=== PATIENT | male | born 1930 | race Caucasian/White ===

== ENCOUNTER 2017-12-07 19:04 | Inpatient (IN) ==
[2017-12-08] MEDS ORDERED: Bisacodyl 10 MG Supp RECTAL PRN (05:47)
[2017-12-08] MEDS ORDERED: Morphine Inj 4 MG/ML Vial IV.PUSH PRN (05:51)
[2017-12-08] MEDS: Sod Chloride 0.9% Inj 1,000 ML IV.CONT SCH ×3 (08:25→20:06)
--- NOTE | 2017-12-08 12:02 | P.HP ---
History of Present Illness Primary Care Physician: UNKNOWN Chief Complaint: Abdominal pain History of Present Illness: 87-year-old male with known history of hypertension, hyperlipidemia, coronary artery disease, myocardial infarction, hypothyroidism, TIA, obstructive sleep apnea who presented to hospital because of recurrent abdominal pain. Patient indicates that he has had abdominal pain for quite a long time. He has had outpatient workup recently with ultrasound of his abdomen , however he has not followed up with his biomedical doctor for results. Patient states that he does get this discomfort intermittently which he describes as a pain in his upper abdomen. He usually has constipation associated with it and when he starts getting that improved he will have an episode of nausea vomiting and the pain will slowly resolve. However he had the same episode with his abdominal pain, constipation, nausea vomiting without any resolution of the pain so he went to the emergency department for evaluation. 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 There appears to be a focal consolidative masslike opacity in the right medial lower lung measuring 2 cm. Because of those reasons it was recommended by the ER physician the patient be admitted for further evaluation management. Patient is sitting up in bed at this time with mild discomfort. Patient denies any worsening of pain after or before eating. Patient denies any increase flatulence or belching. Patient denies any hematemesis, diarrhea, hematochezia , melena. - Diagnosis (1) Elevated liver enzymes (2) Elevated lipase (3) Choledochocele (4) Lung mass (5) Abdominal pain Review of Systems All other systems reviewed negative except as stated in HPI Gastrointestinal: Reports abdominal pain, Reports constipation, Reports nausea, Reports vomiting PMFSH - History History Provided By: Patient - Medical History Medical History: Medical History (Last Updated 12/08/17 @ 11:28 by LUCRECIA Washington) Obstructive sleep apnea, adult Transient ischemic attack (TIA) Hypercholesteremia Myocardial infarct Presence of cardiac defibrillator Thyroid disease - Surgical History Surgical History: Surgical History (Last Updated 12/08/17 @ 11:27 by LUCRECIA Washington) History of cardiac catheterization History of heart artery stent Hx of bilateral hip replacements Pacemaker S/P TURP - Family History Family History: Family History (Last Updated 12/08/17 @ 11:27 by LUCRECIA Washington) Mother History of diabetes mellitus History of stroke Father History of prostate cancer - Tobacco History Second Hand Smoke Exposure: No Tobacco Use In Past 30 Days: No Smoking Status: Former smoker - Alcohol History How Often Do You Have a Drink Containing Alcohol: Never - Substance Use History Substance History: No History of Abuse - Travel History Recent Travel in the [facility] Within the Last 8 Weeks: No Recent Travel Out of the Country Within the Last 8 Weeks: No Medications and Allergies Active Medications: Active Medications Al Hydroxide/Mg Hydroxide (Milk Of Magnesia Liq) 30 ml PO Q12H PRN PRN Reason: Mild Constipation Bisacodyl (Dulcolax Supp) 10 mg RECTAL DAILY PRN PRN Reason: SEVERE CONSITIPATION Sodium Chloride (Ns Inj) 1,000 mls @ 75 mls/hr IV.CONT .[id number] KELLY Last Admin: 12/08/17 08:25 Dose: 75 mls/hr Lactulose (Lactulose Liq) 30 ml PO DAILY PRN PRN Reason: SEVERE CONSITIPATION Morphine Sulfate (Morphine Inj) 2 mg IV.PUSH Q3H PRN PRN Reason: pain 1 to 10 Senna/Docusate Sodium (Juliana-Colace) 1 tab PO BID [facility] Sennosides (Senokot) 17.2 mg PO Q12H PRN PRN Reason: Moderate Constipation Allergies Allergy/AdvReac Type Severity Reaction Status Date / Time Penicillins Allergy Rash Verified 12/07/17 20:48 Sulfa (Sulfonamide Allergy Anaphylaxis Verified 12/07/17 20:48 Antibiotics) Home Medications Medication Instructions Recorded Confirmed Type apixaban [Eliquis] 5 mg PO BID 12/07/17 12/08/17 History lovastatin 40 mg PO DAILY 12/07/17 12/08/17 History aspirin [Aspir-81] 81 mg PO DAILY 12/08/17 12/08/17 History donepezil 10 mg PO DAILY 12/08/17 12/08/17 History finasteride 5 mg PO DAILY 12/08/17 12/08/17 History folic acid 1 mg PO DAILY 12/08/17 12/08/17 History isosorbide dinitrate 5 mg PO BID 12/08/17 12/08/17 History levothyroxine 75 mcg PO DAILY 12/08/17 12/08/17 History metoprolol tartrate 25 mg PO BID 12/08/17 12/08/17 History nitroglycerin [Nitrostat] 0.4 mg SUBLINGUAL Q5-15M PRN 12/08/17 12/08/17 History Exam Vital signs: Vital Signs 12/08/17 05:45 12/08/17 08:25 Temperature 96.9 F L 97.4 F L Pulse Rate 54 L 52 L Respiratory Rate 20 18 Blood Pressure 164/72 H 145/56 H Pulse Oximetry 98 97 Intake & Output 12/07/17 12/08/17 12/08/17 18:59 06:59 18:59 Weight 78.8 kg Other: Weight On Admission 78.9 kg Narrative: GENERAL: Well-developed, well-nourished, in no acute distress. alert and orientated HEENT: Head is normocephalic without any lesions or masses noted. Facial features are symmetric. Eyes: Pupils equal round reactive to light. Extraocular muscles are intact. Conjunctivae were clear. Oropharyngeal: Pharynx without any erythema edema. Tongue is midline without deviation. Buccal mucosa is moist without any masses or lesions NECK: Supple without any masses. Trachea midline no deviation. No JVD, no bruits are appreciated CARDIAC: Regular rhythm, regular rate. S1/S2 are heard. No murmurs gallops or rubs. LUNGS: Clear to auscultation bilaterally. No wheeze, rhonchi or rales. No use of accessory muscles on inspiration or expiration. ABDOMEN: Soft, mild tenderness on deep palpation of the upper right quadrant. Mild positive Rodriguez sign. Nondistended. Bowel sounds heard in all 4 quadrants. No organomegaly or masses. Negative rebound, negative guarding EXTREMITIES: No edema, pulses are equal bilaterally. No cyanosis or clubbing NEUROLOGY: Mood and affect appear appropriate. Cranial nerves II through XII grossly intact. Muscle strength 5/5 in upper and lower extremities bilaterally. Deep tendon reflexes are 2+ in upper and lower extremities bilaterally. Caprini VTE Risk Assessment Caprini VTE Risk Assessment: Moderate/High Risk (score >= 2) Caprini Risk Assessment Model: Point Value = 1 Point Value = 2 Point Value = 3 Point Value = 5 Age 41-60 Minor surgery BMI > 25 kg/m2 Swollen legs Varicose veins or History of unexplained or recurrent spontaneous Oral contraceptives or hormone replacement Sepsis (< 1 month) Serious lung disease, including pneumonia (< 1 month) Abnormal pulmonary function Acute myocardial infarction Congestive heart failure (< 1 month) History of inflammatory bowel disease Medical patient at bed rest Age 61-74 Arthroscopic surgery Major open surgery (> 45 min) Laparoscopic surgery (> 45 min) Malignancy Confined to bed (> 72 hours) Immobilizing plaster cast Central venous access Age >= 75 History of VTE Family history of VTE Factor V Leiden Prothrombin [id number] Lupus anticoagulant Anticardiolipin antibodies Elevated serum homocysteine Heparin-induced thrombocytopenia Other congenital or acquired thrombophilia Stroke (< 1 month) Elective arthroplasty Hip, pelvis, or leg fracture Acute spinal cord injury (< 1 month) Prophylaxis Regimen: Total Risk Factor Score Risk Level Prophylaxis Regimen 0-1 Low Early ambulation 2 Moderate Order ONE of the following: *Sequential Compression Device (SCD) *Heparin 5000 units SQ BID 3-4 Higher Order ONE of the following medications: *Heparin 5000 units SQ TID *Enoxaparin/Lovenox 40 mg SQ daily (WT < 150 kg, CrCl > 30 mL/min) *Enoxaparin/Lovenox 30 mg SQ daily (WT < 150 kg, CrCl > 10-29 mL/min) *Enoxaparin/Lovenox 30 mg SQ BID (WT < 150 kg, CrCl > 30 mL/min) AND/OR *Sequential Compression Device (SCD) 5 or more Highest Order ONE of the following medications: *Heparin 5000 units SQ TID (Preferred with Epidurals) *Enoxaparin/Lovenox 40 mg SQ daily (WT < 150 kg, CrCl > 30 mL/min) *Enoxaparin/Lovenox 30 mg SQ daily (WT < 150 kg, CrCl > 10-29 mL/min) *Enoxaparin/Lovenox 30 mg SQ BID (WT < 150 kg, CrCl > 30 mL/min) AND *Sequential Compression Device (SCD) Assessment and Plan - Assessment (1) Elevated liver enzymes Code(s): R74.8 - Abnormal levels of other serum enzymes Status: Acute (2) Elevated lipase Code(s): R74.8 - Abnormal levels of other serum enzymes Status: Acute (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 - Other congenital malformations of bile ducts Status: Acute (4) Lung mass Code(s): R91.8 - Other nonspecific abnormal finding of lung field Status: Acute (5) Abdominal pain Code(s): R10.9 - Unspecified abdominal pain Status: Acute - Plan Choledochocele/choledocholithiasis -Patient presented with abdominal pain, Elevated liver enzymes, elevated pancreatic enzymes, -CT finding indicating dilated intra-and extrahepatic biliary urinary, possible choledochocele -GI consulted for further recommendations -Unable to do MRCP secondary to patient having a pacemaker -Consider HIDA scan for further evaluation -Continue n.p.o., IV fluids, pain control -Laboratory findings indicative of obstructive process. Continue to monitor liver enzymes, lipase level Masslike consolidation in the right lower lung -Patient does have history of recurrent nausea and vomiting, possible aspiration -Patient is asymptomatic for any infectious process. Patient is afebrile, no leukocytosis, no symptoms of cough, congestion, phlegm production -Consult Pulmonology for further eval Hypertension, hyperlipidemia, coronary disease, history of TIA -We will evaluate patient's home medication list and continue medications as appropriate once diet resumed -Unable to resume beta-renard due to bradycardia -We will continue to hold Eliquis due to possible procedure Hypothyroidism -Continue home medication once diet resumed DVT prevention -Sequential compression devices
[2017-12-08] MEDS: Senna/Docusate Sodium 8.6/50 MG Tablet PO SCH ×2 (12:45→20:06)
[2017-12-08 13:24] LABS: Baso % (Auto) 0.6 % (0.0-2.0); Eos # (Auto) 0.1 th/mm3 (0.0-0.4); Eos % (Auto) 1.8 % (0.0-4.0); Hematocrit 39.1 % (39.0-51.0); Hemoglobin 13.4 gm/dL (13.0-17.0); Lymph # (Auto) 1.4 th/mm3 (1.0-4.8); Lymph % (Auto) 24.1 % (9.0-44.0); Mean Corpuscular HGB Conc 34.3 % (32.0-36.0); Mean Corpuscular Hemoglobin 35.7 pg (27.0-34.0); Mean Platelet Volume 9.2 fL (7.0-11.0); Mono # (Auto) 0.6 th/mm3 (0.0-0.9); Neut # (Auto) 3.7 th/mm3 (1.8-7.7); Neut % (Auto) 63.5 % (16.0-70.0); Platelet Count 149 th/mm3 (150-450); Red Blood Count 3.76 mil/mm3 (4.50-5.90); Red Cell Distribution Width 13.2 % (11.6-17.2); White Blood Count 5.8 th/mm3 (4.0-11.0)
[2017-12-08 14:02] LABS: Chloride 103 meq/L (98-107); Potassium 3.6 meq/L (3.5-5.1); Sodium 141 meq/L (136-145)
[2017-12-08 14:06] LABS: Anion Gap 8 meq/L (5-15); Calcium 8.6 mg/dL (8.5-10.1); Carbon Dioxide 30.4 meq/L (21.0-32.0); Glucose,Random 71 mg/dL (74-106)
[2017-12-08 14:07] LABS: Blood Urea Nitrogen 15 mg/dL (7-18)
[2017-12-08 14:09] LABS: Alanine Aminotransferase 97 U/L (12-78); Aspartate Aminotransferase 113 U/L (15-37); Glomerular Filtration Rate 79 mL/min (>89)
[2017-12-08 14:11] LABS: Total Protein 6.7 g/dL (6.4-8.2)
[2017-12-08 14:12] LABS: Alkaline Phosphatase 234 U/L (45-117); Lipase 5615 U/L (73-393)
[2017-12-08] MEDS ORDERED: Metoprolol Tartrate 25 MG Tablet PO ONE (15:17)
[2017-12-08] MEDS ORDERED: Chlorhexidine Gluconate 2% 1 Pack (2 Cloths) TOPICAL ONE (15:17)
[2017-12-08] MEDS ORDERED: Sodium Chlor 0.9% Inj 500 ML IV.SIG SCH (16:00)
[2017-12-08] MEDS ORDERED: Succinylcholine Inj 100 MG/5 ML Syringe IV.PUSH ONE (16:07)
[2017-12-08] MEDS ORDERED: Metoprolol Inj 5 MG/5 ML Vial IV.PUSH ONE (16:07)
[2017-12-08] MEDS ORDERED: Lidocaine PF 1% Inj 5 ML Syringe OTHER ONE (16:07)
[2017-12-08] MEDS ORDERED: Glycopyrrolate Inj 1 MG/5 ML Syringe IV.PUSH ONE (16:07)
[2017-12-08] MEDS ORDERED: hydrALAZINE HCl Inj 20 MG/ML Vial IV.PUSH ONE (16:07)
--- NOTE | 2017-12-08 17:18 | FL ---
EXAM DATE: 12/08/2017 12:00 AM EDT AGE/SEX: 87 years / Male INDICATIONS: Evaluate for CBD obstruction and stent placement. CLINICAL DATA: This is the patient's subsequent encounter. Patient reports that signs and symptoms h ave been present for 4 - 6 days and indicates a pain score of Nonresponsive. MEDICAL/SURGICAL HISTORY: None. None. COMPARISON: No prior exams available for comparison. FINDINGS: An ERCP was performed by the ordering physician. The images demonstrate contrast in the common bile duct. On the final film there is an internal biliary stent in place. CONCLUSION: Status post placement of an internal biliary stent which appears to be in good position. Electronically signed by: Cliff Tripathi MD 12/08/2017 5:17 PM EDT
--- NOTE | 2017-12-08 18:39 | MB ---
cc: Vikki Iqbal MD, Jennifer L MD Zulfiqar, Hassan MD DATE: 12/08/2017 REASON FOR CONSULTATION: Biliary pancreatitis. HISTORY OF PRESENT ILLNESS: Mr. Hernandez is an 87-year-old gentleman basically presented with severe central abdominal pain with jaundice. He says he has episodic abdominal pain and nausea and vomiting over a period of years, but more recently, this has gotten worse and this time, his pain symptoms did not resolve, so he is coming to the hospital to be evaluated. He had a CT scan done on admission, which showed dilated intrahepatic and extrahepatic biliary system possible choledochocele. Also, possible right lung mass. GI service has been consulted for possible ERCP. REVIEW OF SYSTEMS: The patient is complaining of epigastric pain. He is icteric. Some nausea, but no vomiting. No bleeding. PAST MEDICAL HISTORY: Obstructive sleep apnea, TIA, hypercholesterolemia, OR in the past, thyroid disease. The patient has a cardiac defibrillator. PAST SURGICAL HISTORY: Cardiac catheterization, stent placement, pacemaker, TURP. FAMILY HISTORY: Noncontributory. SOCIAL HISTORY: No alcohol, no tobacco reported. MEDICATIONS: 1. Lactulose. 2. Morphine. 3. Senokot. PHYSICAL EXAMINATION: GENERAL: Reveals a well-nourished man in no apparent distress. VITAL SIGNS: Stable. HEAD AND NECK: Icteric sclerae. CHEST: Bilateral air entry with rales. ABDOMEN: Soft, tenderness in the epigastric area. No guarding, no rigidity. CENTRAL NERVOUS SYSTEM: Nonfocal. LABORATORY DATA: White cell count of 5.8, total bilirubin 5.8, AST 113, ALT 97, alkaline phosphatase 234. Lipase on presentation was over 30,000, now at 5615. CT of the abdomen and pelvis done yesterday shows dilation of the intrahepatic and extrahepatic biliary system, possible choledochocele, sigmoid diverticulosis and a possible consolidation in the right lung. IMPRESSION: Biliary pancreatitis. RECOMMENDATIONS: ERCP is planned for today. Risks and limitations have been discussed with him and his family. The patient will be transferred to [facility] for the ERCP. Further recommendations to follow based on the above. Vikki Iqbal MD HZ/ct , 06:04 PM , 06:14 PM
--- NOTE | 2017-12-08 19:19 | MB ---
cc: Raven Carbajal MD DATE: 12/08/2017 REASON FOR CONSULTATION: Right lower lung density, significance unclear. HISTORY OF PRESENT ILLNESS: The patient is an 87-year-old male who was admitted for biliary obstruction. A biliary stent has been placed. The patient has known history of hypertension, hyperlipidemia, coronary artery disease, hypothyroidism and obstructive sleep apnea. The patient had a CT scan of the abdomen revealing biliary obstruction and noted was a right lower lobe lung density, which had air bronchograms, significance was not clear. I am asked to see the patient at this time for same. He denies shortness of breath, fever, chills, cough or expectoration or hemoptysis. Used to smoke; however, has not smoked for over 30 years. PAST MEDICAL HISTORY: 1. Hypertension. 2. Hyperlipidemia. 3. Coronary artery disease. 4. Hypothyroidism. 5. Previous TIA. 6. Obstructive sleep apnea, on PAP therapy. PAST SURGICAL HISTORY: Include cardiac catheterization and stent placement, bilateral hip placement, pacemaker insertion, TURP in the past. FAMILY HISTORY: Positive for diabetes and stroke as well as prostate cancer. SOCIAL HISTORY: He used to smoke; however, has not smoked in 30 years. Never drank any alcohol, does not use drugs. MEDICATIONS: Include: 1. Senna. 2. Morphine. 3. Lactulose. 4. Sodium chloride. ALLERGIES: SULFA AND PENICILLIN. REVIEW OF SYSTEMS: A 12-point review of systems as per HPI and past history, otherwise negative. PHYSICAL EXAMINATION: GENERAL: The patient is alert. VITAL SIGNS: Temperature is 97, pulse 54, respirations 18, blood pressure 140/60, oxygen saturation 97% on room air. HEENT: Unremarkable. Eyes without icterus. NECK: Without adenopathy or thyroid enlargement. CHEST: No dullness to percussion. Clear to auscultation. ABDOMEN: Slight right upper quadrant tenderness noted. Bowel sounds audible. EXTREMITIES: No clubbing, cyanosis or edema. SKIN: Normal. No lymphadenopathy. LABORATORY DATA: White count 5.8, hemoglobin 13, hematocrit 39, platelets 149,000. Sodium 141, potassium 3.6, BUN 15, creatinine 0.9. IMPRESSION: 1. Right lung density, significance unclear. 2. Hypertension. 3. Hyperlipidemia. 4. Coronary artery disease. 5. Chronic obstructive sleep apnea. 6. Hypothyroidism. 7. History of transient ischemic attack. PLAN: The patient has no respiratory symptomatology. At present is without shortness of breath. The density in the right lower lung has air bronchograms which speaks more for atelectatic change or pneumonia rather than malignancy; however, it needs to be followed up. Once his GI evaluation is complete and the biliary obstruction resolved, will obtain a followup CT scan in a few weeks. Meanwhile, when able we will obtain baseline pulmonary function. I do thank you for asking me to partake in Mr. Hernandez's care. Sincerely, Raven Carbajal MD WWW/ct , 06:28 PM , 06:38 PM
[2017-12-09] MEDS: Sod Chloride 0.9% Inj 1,000 ML IV.CONT SCH ×2 (05:29→10:23)
[2017-12-09 07:13] LABS: Baso % (Auto) 0.1 % (0.0-2.0); Hematocrit 41.8 % (39.0-51.0); Hemoglobin 14.3 gm/dL (13.0-17.0); Lymph # (Auto) 0.8 th/mm3 (1.0-4.8); Lymph % (Auto) 13.1 % (9.0-44.0); Mean Corpuscular HGB Conc 34.3 % (32.0-36.0); Mean Corpuscular Hemoglobin 35.9 pg (27.0-34.0); Mean Corpuscular Volume 104.8 fL (80.0-100.0); Mean Platelet Volume 10.5 fL (7.0-11.0); Mono # (Auto) 0.2 th/mm3 (0.0-0.9); Mono % (Auto) 2.9 % (0.0-8.0); Neut # (Auto) 5.1 th/mm3 (1.8-7.7); Neut % (Auto) 83.9 % (16.0-70.0); Platelet Count 144 th/mm3 (150-450); Red Blood Count 3.99 mil/mm3 (4.50-5.90); Red Cell Distribution Width 13.8 % (11.6-17.2); White Blood Count 6.1 th/mm3 (4.0-11.0)
[2017-12-09 08:04] LABS: Anion Gap 12 meq/L (5-15); Blood Urea Nitrogen 20 mg/dL (7-18); Calcium 8.4 mg/dL (8.5-10.1); Carbon Dioxide 22.8 meq/L (21.0-32.0); Chloride 102 meq/L (98-107); Glomerular Filtration Rate 89 mL/min (>89); Glucose,Random 93 mg/dL (74-106); Lipase 361 U/L (73-393); Potassium 3.7 meq/L (3.5-5.1); Sodium 137 meq/L (136-145)
[2017-12-09 08:05] LABS: Alanine Aminotransferase 86 U/L (12-78); Aspartate Aminotransferase 85 U/L (15-37)
[2017-12-09 08:07] LABS: Alkaline Phosphatase 228 U/L (45-117)
[2017-12-09 09:15] VITALS: RESP 16
[2017-12-09] MEDS: Senna/Docusate Sodium 8.6/50 MG Tablet PO SCH (10:23)
--- NOTE | 2017-12-09 11:09 | ECG ---
Date Performed: 12/08/2017 Time Performed: 15:29:24 PTAGE: 87 years EKG: SINUS BRADYCARDIA BORDERLINE LEFT AXIS DEVIATION INCOMPLETE RIGHT BUNDLE BRANCH BLOCK NONSP ECIFIC ST & T-WAVE ABNORMALITY BORDERLINE ECG NO PREVIOUS TRACING DOCTOR: Jonah Rose Interpretating Date/Time 12/09/2017 11:08:19
--- NOTE | 2017-12-09 11:25 | P.PNGI ---
Subjective Interval history: Patient laying supine in bed, spouse at bedside. Patient post ERCP yesterday. Reporting mild lower abdominal discomfort that he states is less than upon admission. Denies nausea or vomiting, is n.p.o. at this time. <DavidTami - Last Filed: 12/09/17 11:15> Physical Exam Vital signs: Vital Signs 12/08/17 17:06 12/08/17 17:15 12/08/17 17:47 Temperature 97.8 F 97.8 F 98.0 F Pulse Rate 73 72 62 Respiratory Rate 20 15 18 Blood Pressure 147/64 H 137/68 154/68 H Pulse Oximetry 100 99 97 12/08/17 20:02 12/09/17 00:35 12/09/17 04:00 Temperature 97.7 F 97.4 F L 97.3 F L Pulse Rate 60 70 77 Respiratory Rate 20 20 17 Blood Pressure 119/57 L 143/61 H 143/68 H Pulse Oximetry 97 97 96 12/09/17 08:00 Temperature 97.4 F L Pulse Rate 62 Respiratory Rate 16 Blood Pressure 128/70 Pulse Oximetry 97 Intake & Output 12/08/17 12/09/17 12/09/17 18:59 06:59 18:59 Intake Total 1700 / 1700 1000 / 1000 1200 / 1200 Output Total 400 / 400 Balance 1700 / 1700 1000 / 1000 800 / 800 Weight 83.2 kg Intake: IV 1000 / 1000 1000 / 1000 300 / 300 NS Inj 1,000 ML @ 75 mls/hr IV. 1000 / 1000 1000 / 1000 CONT .[id number] KELLY Rx#: [id number] LR 1000 mL Inj 1,000 ML @ 30 300 / 300 mls/hr IV.SIG .Q24H KELLY Rx#: [id number] Oral 900 / 900 Anesthesia Amount 700 / 700 Output: Urine 400 / 400 Other: # Voids 1 1 Date of Last Bowel Movement 12/07/17 12/07/17 - Constitutional no acute distress - Routine HEENT Exam Head: Present: normocephalic - Routine Respiratory Exam Present: CTA bilaterally. Absent: accessory muscle use - Routine Cardiovascular Exam Present: RRR - Routine Abdominal Exam Present: soft, normoactive bowel sounds. Absent: tenderness, distended, guarding, firm - Routine Extremities Exam Present: pulses intact. Absent: edema - Routine Skin Exam Present: dry, warm - Routine Neurological Exam Present: alert, oriented X3 - Detailed Neurological Exam: Coma Scale Eye Opening: Spontaneous Verbal Response: Oriented Motor Response: Obey commands Suad Coma Scale Total: 15 - Routine Psychiatric Exam Present: normal affect, cooperative <Tami David - Last Filed: 12/09/17 11:15> Vital signs: Vital Signs 12/08/17 17:06 12/08/17 17:15 12/08/17 17:47 Temperature 97.8 F 97.8 F 98.0 F Pulse Rate 73 72 62 Respiratory Rate 20 15 18 Blood Pressure 147/64 H 137/68 154/68 H Pulse Oximetry 100 99 97 12/08/17 20:02 12/09/17 00:35 12/09/17 04:00 Temperature 97.7 F 97.4 F L 97.3 F L Pulse Rate 60 70 77 Respiratory Rate 20 20 17 Blood Pressure 119/57 L 143/61 H 143/68 H Pulse Oximetry 97 97 96 12/09/17 08:00 12/09/17 12:48 Temperature 97.4 F L 97.5 F L Pulse Rate 62 61 Respiratory Rate 16 16 Blood Pressure 128/70 119/63 Pulse Oximetry 97 95 Intake & Output 12/08/17 12/09/17 12/09/17 18:59 06:59 18:59 Intake Total 1700 / 1700 1000 / 1000 1200 / 1200 Output Total 400 / 400 Balance 1700 / 1700 1000 / 1000 800 / 800 Weight 83.2 kg Intake: IV 1000 / 1000 1000 / 1000 300 / 300 NS Inj 1,000 ML @ 75 mls/hr IV. 1000 / 1000 1000 / 1000 CONT .[id number] KELLY Rx#: [id number] LR 1000 mL Inj 1,000 ML @ 30 300 / 300 mls/hr IV.SIG .Q24H KELLY Rx#: [id number] Oral 900 / 900 Anesthesia Amount 700 / 700 Output: Urine 400 / 400 Other: # Voids 1 1 Date of Last Bowel Movement 12/07/17 12/07/17 <Vikki Iqbal - Last Filed: 12/09/17 14:03> Results - Labs CBC & Chem 7: 12/09/17 05:52 12/09/17 05:52 Laboratory Results - last 24 hr 12/08/17 12/08/1712/09/18 13:00 13:00 05:52 CBC w Diff Auto diff final WBC 5.8 6.1 RBC 3.76 L 3.99 L Hgb 13.4 14.3 Hct 39.1 41.8 MCV 104.0 H D 104.8 H MCH 35.7 H 35.9 H MCHC 34.3 34.3 RDW 13.2 13.8 Plt Count 149 L 144 L MPV 9.2 10.5 Neut % (Auto) 63.5 83.9 H Lymph % (Auto) 24.1 13.1 [place] % (Auto) 10.0 H 2.9 Eos % (Auto) 1.8 0.0 Baso % (Auto) 0.6 0.1 Neut # (Auto) 3.7 5.1 Lymph # (Auto) 1.4 0.8 L [place] # (Auto) 0.6 0.2 Eos # (Auto) 0.1 0.0 Baso # (Auto) 0.0 0.0 WBC Differential . . Differential Comment . Auto diff final Sodium 141 Potassium 3.6 Chloride 103 Carbon Dioxide 30.4 Anion Gap 8 BUN 15 Creatinine 0.91 Estimated GFR 79 L Random Glucose 71 L Calcium 8.6 Total Bilirubin 5.8 H AST 113 H ALT 97 H Alkaline Phosphatase 234 H Total Protein 6.7 D Albumin 3.0 L D Lipase 5615 H 12/09/17 05:52 CBC w Diff WBC RBC Hgb Hct MCV MCH MCHC RDW Plt Count MPV Neut % (Auto) Lymph % (Auto) [place] % (Auto) Eos % (Auto) Baso % (Auto) Neut # (Auto) Lymph # (Auto) [place] # (Auto) Eos # (Auto) Baso # (Auto) WBC Differential Differential Comment Sodium 137 Potassium 3.7 Chloride 102 Carbon Dioxide 22.8 Anion Gap 12 BUN 20 H Creatinine 0.82 Estimated GFR 89 Random Glucose 93 Calcium 8.4 L Total Bilirubin 2.2 H AST 85 H ALT 86 H Alkaline Phosphatase 228 H Total Protein 7.0 Albumin 3.0 L Lipase 361 - Imaging Impressions GI Procedure 12/08/17 00:00 CONCLUSION: Status post placement of an internal biliary stent which appears to be in good position. <Tami David - Last Filed: 12/09/17 11:15> - Labs CBC & Chem 7: 12/09/17 05:52 12/09/17 05:52 Laboratory Results - last 24 hr 12/08/17 12/09/17 12/09/17 13:00 05:52 05:52 WBC 6.1 RBC 3.99 L Hgb 14.3 Hct 41.8 MCV 104.8 H MCH 35.9 H MCHC 34.3 RDW 13.8 Plt Count 144 L MPV 10.5 Neut % (Auto) 83.9 H Lymph % (Auto) 13.1 [place] % (Auto) 2.9 Eos % (Auto) 0.0 Baso % (Auto) 0.1 Neut # (Auto) 5.1 Lymph # (Auto) 0.8 L [place] # (Auto) 0.2 Eos # (Auto) 0.0 Baso # (Auto) 0.0 WBC Differential . Differential Comment Auto diff final Sodium 141 137 Potassium 3.6 3.7 Chloride 103 102 Carbon Dioxide 30.4 22.8 Anion Gap 8 12 BUN 15 20 H Creatinine 0.91 0.82 Estimated GFR 79 L 89 Random Glucose 71 L 93 Calcium 8.6 8.4 L Total Bilirubin 5.8 H 2.2 H AST 113 H 85 H ALT 97 H 86 H Alkaline Phosphatase 234 H 228 H Total Protein 6.7 D 7.0 Albumin 3.0 L D 3.0 L Lipase 5615 H 361 - Imaging Impressions GI Procedure 12/08/17 00:00 CONCLUSION: Status post placement of an internal biliary stent which appears to be in good position. <Vikki Iqbal - Last Filed: 12/09/17 14:03> Assessment and Plan - Plan Biliary Pancreatitis-patient post ERCP yesterday resting comfortably. Reports lower abdominal mild discomfort which he states is improved from admission. ERCP revealed dilation of the common bile duct up to 9 mm with no bile draining of the ampulla. Ampulla dilated with biliary dilation balloon and stent placed in the common biliary duct. Hemoglobin 14.3 hematocrit 41.8 total bilirubin 2.2 AST 85 ALT 86 alk phos 228 lipase much improved 361 from 5615 on 12/08/2017. Plan -N.p.o. for now -MRCP -Continue to monitor liver enzymes -Bowel regimen -Analgesics per attending -Supportive care -Further recommendations to follow based on patient's status and findings This patient has been seen by myself and Dr. Iqbal and this note is written on his behalf - Attending Attestation Dr. Iqbal <Tami David - Last Filed: 12/09/17 11:15> - Plan Seen and examined with [employer] MK 2 ADVANCED OPERATOR, MRCP today. S/p ercp/stent yesterday. Monitor labs. Unclear etiology of pancreatitis. Biopsies-p. The exam, history, and the medical decision-making described in the above note were completed with the assistance of the mid-level provider. I reviewed and agree with the findings presented. I attest that I had a [id number] encounter with the patient on the same day, and personally performed and documented my assessment and findings in the medical record. <Vikki Iqbal - Last Filed: 12/09/17 14:03>
--- NOTE | 2017-12-09 11:38 | P.PN ---
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 There appears to be a focal consolidative masslike opacity in the right medial lower lung measuring 2 cm. 12/09: Seen in his bedroom in the presence of his relatives, he had the MRCP giving Interval placement of a Silastic stent within the common bile duct, no biliary ductal dilatation observed on the current study, Prior Cholecystectomy, Examination is slightly lmited due to breathing motion artifact. okay to discharge from GI specialist standpoint and follow as outpatient, also by field marketing specialist will follow as outpatient. By Doctor Raven Carbajal. Physical Exam Vital signs: Vital Signs 12/08/17 17:06 12/08/17 17:15 12/08/17 17:47 Temperature 97.8 F 97.8 F 98.0 F Pulse Rate 73 72 62 Respiratory Rate 20 15 18 Blood Pressure 147/64 H 137/68 154/68 H Pulse Oximetry 100 99 97 12/08/17 20:02 12/09/17 00:35 12/09/17 04:00 Temperature 97.7 F 97.4 F L 97.3 F L Pulse Rate 60 70 77 Respiratory Rate 20 20 17 Blood Pressure 119/57 L 143/61 H 143/68 H Pulse Oximetry 97 97 96 12/09/17 08:00 Temperature 97.4 F L Pulse Rate 62 Respiratory Rate 16 Blood Pressure 128/70 Pulse Oximetry 97 Intake & Output 12/08/17 12/09/17 12/09/17 18:59 06:59 18:59 Intake Total 1700 / 1700 1000 / 1000 1200 / 1200 Output Total 400 / 400 Balance 1700 / 1700 1000 / 1000 800 / 800 Weight 83.2 kg Intake: IV 1000 / 1000 1000 / 1000 300 / 300 NS Inj 1,000 ML @ 75 mls/hr IV. 1000 / 1000 1000 / 1000 CONT .[id number] KELLY Rx#: [id number] LR 1000 mL Inj 1,000 ML @ 30 300 / 300 mls/hr IV.SIG .Q24H KELLY Rx#: [id number] Oral 900 / 900 Anesthesia Amount 700 / 700 Output: Urine 400 / 400 Other: # Voids 1 1 Date of Last Bowel Movement 12/07/17 12/07/17 Narrative: GENERAL: Well-developed, well-nourished, in no acute distress. alert and orientated HEENT: Head is normocephalic without any lesions or masses noted. NECK: Supple without any masses. Trachea midline no deviation. No JVD, no bruits are appreciated CARDIAC: Regular rhythm, regular rate. S1/S2 are heard. No murmurs gallops or rubs. LUNGS: Clear to auscultation bilaterally. No wheeze, rhonchi or rales. No use of accessory muscles on inspiration or expiration. ABDOMEN: Soft, Not tender. EXTREMITIES: No edema, pulses are equal bilaterally. No cyanosis or clubbing NEUROLOGY: Mood and affect appear appropriate. Cranial nerves II through XII grossly intact. Muscle strength 5/5 in upper and lower extremities bilaterally. Deep tendon reflexes are 2+ in upper and lower extremities bilaterally. Results - Labs CBC & Chem 7: 12/09/17 05:52 12/09/17 05:52 Laboratory Results - last 24 hr 12/08/17 12/08/17 12/09/17 13:00 13:00 05:52 CBC w Diff Auto diff final WBC 5.8 6.1 RBC 3.76 L 3.99 L Hgb 13.4 14.3 Hct 39.1 41.8 MCV 104.0 H D 104.8 H MCH 35.7 H 35.9 H MCHC 34.3 34.3 RDW 13.2 13.8 Plt Count 149 L 144 L MPV 9.2 10.5 Neut % (Auto) 63.5 83.9 H Lymph % (Auto) 24.1 13.1 [place] % (Auto) 10.0 H 2.9 Eos % (Auto) 1.8 0.0 Baso % (Auto) 0.6 0.1 Neut # (Auto) 3.7 5.1 Lymph # (Auto) 1.4 0.8 L [place] # (Auto) 0.6 0.2 Eos # (Auto) 0.1 0.0 Baso # (Auto) 0.0 0.0 WBC Differential . . Differential Comment . Auto diff final Sodium 141 Potassium 3.6 Chloride 103 Carbon Dioxide 30.4 Anion Gap 8 BUN 15 Creatinine 0.91 Estimated GFR 79 L Random Glucose 71 L Calcium 8.6 Total Bilirubin 5.8 H AST 113 H ALT 97 H Alkaline Phosphatase 234 H Total Protein 6.7 D Albumin 3.0 L D Lipase 5615 H 12/09/17 05:52 CBC w Diff WBC RBC Hgb Hct MCV MCH MCHC RDW Plt Count MPV Neut % (Auto) Lymph % (Auto) [place] % (Auto) Eos % (Auto) Baso % (Auto) Neut # (Auto) Lymph # (Auto) [place] # (Auto) Eos # (Auto) Baso # (Auto) WBC Differential Differential Comment Sodium 137 Potassium 3.7 Chloride 102 Carbon Dioxide 22.8 Anion Gap 12 BUN 20 H Creatinine 0.82 Estimated GFR 89 Random Glucose 93 Calcium 8.4 L Total Bilirubin 2.2 H AST 85 H ALT 86 H Alkaline Phosphatase 228 H Total Protein 7.0 Albumin 3.0 L Lipase 361 - Imaging GI Procedure 12/08/17 00:00 CONCLUSION: Status post placement of an internal biliary stent which appears to be in good position. 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 Ampulla dilated with biliary dilation balloon and stent placed in the common biliary duct. His Bilirubin 2.2, AST 85 ALT 86, AP 228, Lipase improved 361 from 565 on 12/08/17. recommended to continue NPO. MRCP1: Seen in his bedroom in the presence of his relatives, he had the MRCP giving Interval placement of a Silastic stent within the common bile duct, no biliary ductal dilatation observed on the current study, Prior Cholecystectomy, Examination is slightly lmited due to breathing motion artifact. okay to discharge from GI specialist standpoint and follow as outpatient Masslike consolidation in the right lower lung, -Patient does have history of recurrent nausea and vomiting, possible aspiration -Patient is asymptomatic for any infectious process. Patient is afebrile, no leukocytosis, no symptoms of cough, congestion, phlegm production -also by field marketing specialist will follow as outpatient. By Doctor Raven Carbajal. Hypertension, hyperlipidemia, coronary disease, history of TIA -We will evaluate patient's home medication list and continue medications as appropriate once diet resumed -Unable to resume beta-renard due to bradycardia -re started the rest of home medicines. Hypothyroidism -Continue home medication once diet resumed DVT prevention -Sequential compression devices Code Status: Full Code. Discussed Condition With: as per Utilization management asked me early in am to switch the patient to Inpatient but he is going to be discharged now. was switched early in am discussed with patient and nurse and relatives in the room Discharge Planning: Discharge Home now.
[2017-12-09] MEDS ORDERED: Gadobutrol PF 10 MMOL/10 ML Vial (for RAD) IV.SIG ONE (14:28)
--- NOTE | 2017-12-09 14:50 | MR ---
EXAM DATE: 12/09/2017 10:56 AM EDT AGE/SEX: 87 years / Male INDICATIONS: Abdominal pain. CLINICAL DATA: This is the patient's subsequent encounter. Patient reports that signs and symptoms h ave been present for 2 days and indicates a pain score of 3/10. MEDICAL/SURGICAL HISTORY: Carcinoma, prostatic. Hypertension. Hypothyroidism. TIA Cholecyst ectomy. bilateral hip replacement, [employer] pacemaker, cardiac stents COMPARISON: [facility], CT ABDOMEN & PELVIS W CONTRAST, 12/07/2017.. . TECHNIQUE: Multisequence, multiplanar MRI examination was performed without contrast and after the in travenous administration of 8 ml Gadavist (gadobutrol) contrast as a single exam dose. FINDINGS: Study degraded by breathing motion artifact. Liver: The liver is homogeneous and normal in signal intensity with no focal defects. Intrahepatic Bile Ducts: There is no intrahepatic biliary ductal dilatation. The previously seen dil atation has resolved. Common Bile Duct: The common bile duct is normal in caliber. There is a Silastic stent observed. No common bile duct dilatation. No filling defects or obstructing lesions are identified. Gallbladder: Surgically absent. Pancreas: The pancreas appears normal in signal with no focal parenchymal abnormalities. The pancrea tic duct is normal in caliber with no filling defects, or obstructing lesions identified. CONCLUSION: 1. There has been interval placement of a Silastic stent within the common bile duct. No biliary jaren sheldon dilatation observed on the current study. 2. Prior cholecystectomy. 3. Examination is slightly limited due to breathing motion artifact. Electronically signed by: Leonel Smith MD 12/09/2017 2:48 PM EDT
--- NOTE | 2017-12-09 15:37 | P.PN ---
Subjective Interval history: ALERT NAD Physical Exam Vital signs: Vital Signs 12/08/17 17:06 12/08/17 17:15 12/08/17 17:47 Temperature 97.8 F 97.8 F 98.0 F Pulse Rate 73 72 62 Respiratory Rate 20 15 18 Blood Pressure 147/64 H 137/68 154/68 H Pulse Oximetry 100 99 97 12/08/17 20:02 12/09/17 00:35 12/09/17 04:00 Temperature 97.7 F 97.4 F L 97.3 F L Pulse Rate 60 70 77 Respiratory Rate 20 20 17 Blood Pressure 119/57 L 143/61 H 143/68 H Pulse Oximetry 97 97 96 12/09/17 08:00 12/09/17 12:48 Temperature 97.4 F L 97.5 F L Pulse Rate 62 61 Respiratory Rate 16 16 Blood Pressure 128/70 119/63 Pulse Oximetry 97 95 Intake & Output 12/08/17 12/09/17 12/09/17 18:59 06:59 18:59 Intake Total 1700 / 1700 1000 / 1000 1200 / 1200 Output Total 400 / 400 Balance 1700 / 1700 1000 / 1000 800 / 800 Weight 83.2 kg Intake: IV 1000 / 1000 1000 / 1000 300 / 300 NS Inj 1,000 ML @ 75 mls/hr IV. 1000 / 1000 1000 / 1000 CONT .[id number] KELLY Rx#: [id number] LR 1000 mL Inj 1,000 ML @ 30 300 / 300 mls/hr IV.SIG .Q24H KELLY Rx#: [id number] Oral 900 / 900 Anesthesia Amount 700 / 700 Output: Urine 400 / 400 Other: # Voids 1 1 Date of Last Bowel Movement 12/07/17 12/07/17 Narrative: GENERAL: Well-developed, well-nourished, in no acute distress. alert and orientated HEENT: Head is normocephalic without any lesions or masses noted. Facial features are symmetric. Eyes: Pupils equal round reactive to light. Extraocular muscles are intact. Conjunctivae were clear. Oropharyngeal: Pharynx without any erythema edema. Tongue is midline without deviation. Buccal mucosa is moist without any masses or lesions NECK: Supple without any masses. Trachea midline no deviation. No JVD, no bruits are appreciated CARDIAC: Regular rhythm, regular rate. S1/S2 are heard. No murmurs gallops or rubs. LUNGS: Clear to auscultation bilaterally. No wheeze, rhonchi or rales. No use of accessory muscles on inspiration or expiration. ABDOMEN: Soft, mild tenderness on deep palpation of the upper right quadrant. Mild positive Rodriguez sign. Nondistended. Bowel sounds heard in all 4 quadrants. No organomegaly or masses. Negative rebound, negative guarding EXTREMITIES: No edema, pulses are equal bilaterally. No cyanosis or clubbing NEUROLOGY: Mood and affect appear appropriate. Cranial nerves II through XII grossly intact. Muscle strength 5/5 in upper and lower extremities bilaterally. Deep tendon reflexes are 2+ in upper and lower extremities bilaterally. Results - Labs CBC & Chem 7: 12/09/17 05:52 12/09/17 05:52 Laboratory Results - last 24 hr 12/09/17 12/09/17 05:52 05:52 WBC 6.1 RBC 3.99 L Hgb 14.3 Hct 41.8 MCV 104.8 H MCH 35.9 H MCHC 34.3 RDW 13.8 Plt Count 144 L MPV 10.5 Neut % (Auto) 83.9 H Lymph % (Auto) 13.1 [place] % (Auto) 2.9 Eos % (Auto) 0.0 Baso % (Auto) 0.1 Neut # (Auto) 5.1 Lymph # (Auto) 0.8 L [place] # (Auto) 0.2 Eos # (Auto) 0.0 Baso # (Auto) 0.0 WBC Differential . Differential Comment Auto diff final Sodium 137 Potassium 3.7 Chloride 102 Carbon Dioxide 22.8 Anion Gap 12 BUN 20 H Creatinine 0.82 Estimated GFR 89 Random Glucose 93 Calcium 8.4 L Total Bilirubin 2.2 H AST 85 H ALT 86 H Alkaline Phosphatase 228 H Total Protein 7.0 Albumin 3.0 L Lipase 361 - Imaging Impressions GI Procedure 12/08/17 00:00 CONCLUSION: Status post placement of an internal biliary stent which appears to be in good position. Cholangiopancreatography MRI 12/09/17 07:02 CONCLUSION: 1. There has been interval placement of a Silastic stent within the common bile duct. No biliary ductal dilatation observed on the current study. 2. Prior cholecystectomy. 3. Examination is slightly limited due to breathing motion artifact. Assessment and Plan - Plan IMPRESSION LUNG MASS BILIARY OBSTRUCTION POST STENT PLACEMENT PLAN PULM TOILET INCREASE ACTIVITY FURTHER EVALUATION OF LUNG DENSITY OUT PATIENTIF DISCHRGED
[2017-12-09 17:04] VITALS: BP 165/67; PULSE 58; TEMP 97.4; O2SAT 96
--- NOTE | 2017-12-09 18:11 | P.DS ---
Date of admission: 12/09/17 12:02 Primary care physician: Hanh Jeong MD Attending physician on discharge: Tyson Cooney Anticipated date of discharge: 12/09/17 Brief History from admission: 87-year-old male with known history of hypertension, hyperlipidemia, coronary artery disease, myocardial infarction, hypothyroidism, TIA, obstructive sleep apnea who presented to hospital because of recurrent abdominal pain. Patient indicates that he has had abdominal pain for quite a long time. He has had outpatient workup recently with ultrasound of his abdomen , however he has not followed up with his biomedical doctor for results. Patient states that he does get this discomfort intermittently which he describes as a pain in his upper abdomen. He usually has constipation associated with it and when he starts getting that improved he will have an episode of nausea vomiting and the pain will slowly resolve. However he had the same episode with his abdominal pain, constipation, nausea vomiting without any resolution of the pain so he went to the emergency department for evaluation. 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 There appears to be a focal consolidative masslike opacity in the right medial lower lung measuring 2 cm. Because of those reasons it was recommended by the ER physician the patient be admitted for further evaluation management. Patient is sitting up in bed at this time with mild discomfort. Patient denies any worsening of pain after or before eating. Patient denies any increase flatulence or belching. Patient denies any hematemesis, diarrhea, hematochezia , melena. 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 There appears to be a focal consolidative masslike opacity in the right medial lower lung measuring 2 cm. 12/09: Seen in his bedroom in the presence of his relatives, he had the MRCP giving Interval placement of a Silastic stent within the common bile duct, no biliary ductal dilatation observed on the current study, Prior Cholecystectomy, Examination is slightly lmited due to breathing motion artifact. okay to discharge from GI specialist standpoint and follow as outpatient, also by renal medicine specialist will follow as outpatient. By Doctor Raven Carbajal. Physical Exam Vital signs: Vital Signs 12/08/17 17:06 12/08/17 17:15 12/08/17 17:47 Temperature 97.8 F 97.8 F 98.0 F Pulse Rate 73 72 62 Respiratory Rate 20 15 18 Blood Pressure 147/64 H 137/68 154/68 H Pulse Oximetry 100 99 97 12/08/17 20:02 12/09/17 00:35 12/09/17 04:00 Temperature 97.7 F 97.4 F L 97.3 F L Pulse Rate 60 70 77 Respiratory Rate 20 20 17 Blood Pressure 119/57 L 143/61 H 143/68 H Pulse Oximetry 97 97 96 12/09/17 08:00 Temperature 97.4 F L Pulse Rate 62 Respiratory Rate 16 Blood Pressure 128/70 Pulse Oximetry 97 Intake & Output 12/08/17 12/09/17 12/09/17 18:59 06:59 18:59 Intake Total 1700 / 1700 1000 / 1000 1200 / 1200 Output Total 400 / 400 Balance 1700 / 1700 1000 / 1000 800 / 800 Weight 83.2 kg Intake: IV 1000 / 1000 1000 / 1000 300 / 300 NS Inj 1,000 ML @ 75 mls/hr IV. 1000 / 1000 1000 / 1000 CONT .[id number] KELLY Rx#: [id number] LR 1000 mL Inj 1,000 ML @ 30 300 / 300 mls/hr IV.SIG .Q24H KELLY Rx#: [id number] Oral 900 / 900 Anesthesia Amount 700 / 700 Output: Urine 400 / 400 Other: # Voids 1 1 Date of Last Bowel Movement 12/07/17 12/07/17 Results - Labs CBC & Chem 7: 12/09/17 05:52 12/09/17 05:52 Laboratory Results - last 24 hr 12/08/17 12/08/17 12/09/17 13:00 13:00 05:52 CBC w Diff Auto diff final WBC 5.8 6.1 RBC 3.76 L 3.99 L Hgb 13.4 14.3 Hct 39.1 41.8 MCV 104.0 H D 104.8 H MCH 35.7 H 35.9 H MCHC 34.3 34.3 RDW 13.2 13.8 Plt Count 149 L 144 L MPV 9.2 10.5 Neut % (Auto) 63.5 83.9 H Lymph % (Auto) 24.1 13.1 [place] % (Auto) 10.0 H 2.9 Eos % (Auto) 1.8 0.0 Baso % (Auto) 0.6 0.1 Neut # (Auto) 3.7 5.1 Lymph # (Auto) 1.4 0.8 L [place] # (Auto) 0.6 0.2 Eos # (Auto) 0.1 0.0 Baso # (Auto) 0.0 0.0 WBC Differential . . Differential Comment . Auto diff final Sodium 141 Potassium 3.6 Chloride 103 Carbon Dioxide 30.4 Anion Gap 8 BUN 15 Creatinine 0.91 Estimated GFR 79 L Random Glucose 71 L Calcium 8.6 Total Bilirubin 5.8 H AST 113 H ALT 97 H Alkaline Phosphatase 234 H Total Protein 6.7 D Albumin 3.0 L D Lipase 5615 H 12/09/17 05:52 CBC w Diff WBC RBC Hgb Hct MCV MCH MCHC RDW Plt Count MPV Neut % (Auto) Lymph % (Auto) [place] % (Auto) Eos % (Auto) Baso % (Auto) Neut # (Auto) Lymph # (Auto) [place] # (Auto) Eos # (Auto) Baso # (Auto) WBC Differential Differential Comment Sodium 137 Potassium 3.7 Chloride 102 Carbon Dioxide 22.8 Anion Gap 12 BUN 20 H Creatinine 0.82 Estimated GFR 89 Random Glucose 93 Calcium 8.4 L Total Bilirubin 2.2 H AST 85 H ALT 86 H Alkaline Phosphatase 228 H Total Protein 7.0 Albumin 3.0 L Lipase 361 - Imaging GI Procedure 12/08/17 00:00 CONCLUSION: Status post placement of an internal biliary stent which appears to be in good position. 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 Ampulla dilated with biliary dilation balloon and stent placed in the common biliary duct. His Bilirubin 2.2, AST 85 ALT 86, AP 228, Lipase improved 361 from 565 on 12/08/17. recommended to continue NPO. MRCP1: Seen in his bedroom in the presence of his relatives, he had the MRCP giving Interval placement of a Silastic stent within the common bile duct, no biliary ductal dilatation observed on the current study, Prior Cholecystectomy, Examination is slightly lmited due to breathing motion artifact. okay to discharge from GI specialist standpoint and follow as outpatient Masslike consolidation in the right lower lung, -Patient does have history of recurrent nausea and vomiting, possible aspiration -Patient is asymptomatic for any infectious process. Patient is afebrile, no leukocytosis, no symptoms of cough, congestion, phlegm production -also by renal medicine specialist will follow as outpatient. By Doctor Raven Carbajal. Hypertension, hyperlipidemia, coronary disease, history of TIA -We will evaluate patient's home medication list and continue medications as appropriate once diet resumed -Unable to resume beta-renard due to bradycardia -re started the rest of home medicines. Hypothyroidism -Continue home medication once diet resumed DVT prevention -Sequential compression devices Code Status: Full Code. Discussed Condition With: as per Utilization management asked me early in am to switch the patient to Inpatient but he is going to be discharged now. was switched early in am discussed with patient and nurse and relatives in the room Discharge Planning: Discharge Home now. - Time Spent with Patient Total time spent providing and/or coordinating discharge services: Less than 30 minutes - Quality: VTE Deep Vein Thrombosis/Pulmonary Embolism Present on Admission: No Exam Vital signs: Vital Signs 12/08/17 20:02 12/09/17 00:35 12/09/17 04:00 Temperature 97.7 F 97.4 F L 97.3 F L Pulse Rate 60 70 77 Respiratory Rate 20 20 17 Blood Pressure 119/57 L 143/61 H 143/68 H Pulse Oximetry 97 97 96 12/09/17 08:00 12/09/17 12:48 12/09/17 16:00 Temperature 97.4 F L 97.5 F L 97.4 F L Pulse Rate 62 61 58 L Respiratory Rate 16 16 16 Blood Pressure 128/70 119/63 165/67 H Pulse Oximetry 97 95 96 Intake & Output 12/08/17 12/09/17 12/09/17 18:59 06:59 18:59 Intake Total 1700 / 1700 1000 / 1000 1600 / 1600 Output Total 400 / 400 Balance 1700 / 1700 1000 / 1000 1200 / 1200 Weight 83.2 kg Intake: IV 1000 / 1000 1000 / 1000 700 / 700 NS Inj 1,000 ML @ 75 mls/hr IV. 1000 / 1000 1000 / 1000 400 / 400 CONT .[id number] KELLY Rx#: [id number] LR 1000 mL Inj 1,000 ML @ 30 300 / 300 mls/hr IV.SIG .Q24H KELLY Rx#: [id number] Oral 900 / 900 Anesthesia Amount 700 / 700 Output: Urine 400 / 400 Other: # Voids 1 1 Date of Last Bowel Movement 12/07/17 12/07/17 Narrative: GENERAL: Well-developed, well-nourished, in no acute distress. alert and orientated HEENT: Head is normocephalic without any lesions or masses noted. NECK: Supple without any masses. Trachea midline no deviation. No JVD, no bruits are appreciated CARDIAC: Regular rhythm, regular rate. S1/S2 are heard. No murmurs gallops or rubs. LUNGS: Clear to auscultation bilaterally. No wheeze, rhonchi or rales. No use of accessory muscles on inspiration or expiration. ABDOMEN: Soft, Not tender. EXTREMITIES: No edema, pulses are equal bilaterally. No cyanosis or clubbing NEUROLOGY: Mood and affect appear appropriate. Cranial nerves II through XII grossly intact. Muscle strength 5/5 in upper and lower extremities bilaterally. Deep tendon reflexes are 2+ in upper and lower extremities bilaterally. Results Procedures completed during hospitalization: ERCP MRCP Labs on day of discharge: Labs from last 24 hours 12/09/17 12/09/17 05:52 05:52 WBC 6.1 RBC 3.99 L Hgb 14.3 Hct 41.8 MCV 104.8 H MCH 35.9 H MCHC 34.3 RDW 13.8 Plt Count 144 L MPV 10.5 Neut % (Auto) 83.9 H Lymph % (Auto) 13.1 [place] % (Auto) 2.9 Eos % (Auto) 0.0 Baso % (Auto) 0.1 Neut # (Auto) 5.1 Lymph # (Auto) 0.8 L [place] # (Auto) 0.2 Eos # (Auto) 0.0 Baso # (Auto) 0.0 WBC Differential . Differential Comment Auto diff final Sodium 137 Potassium 3.7 Chloride 102 Carbon Dioxide 22.8 Anion Gap 12 BUN 20 H Creatinine 0.82 Estimated GFR 89 Random Glucose 93 Calcium 8.4 L Total Bilirubin 2.2 H AST 85 H ALT 86 H Alkaline Phosphatase 228 H Total Protein 7.0 Albumin 3.0 L Lipase 361 - Impressions ITS Impressions GI Procedure 12/08/17 00:00 CONCLUSION: Status post placement of an internal biliary stent which appears to be in good position. Cholangiopancreatography MRI 12/09/17 07:02 CONCLUSION: 1. There has been interval placement of a Silastic stent within the common bile duct. No biliary ductal dilatation observed on the current study. 2. Prior cholecystectomy. 3. Examination is slightly limited due to breathing motion artifact. Discharge Plan - Discharge Disposition Patient Disposition: 01 Discharge Home - Discharge Condition Condition: Good - Discharge Order Discharge Orders: Discharge Order (Routine); Ordered 12/09/17 Ordered By: Tyson Cooney - Discharge Details Anticipated Discharge Date: 12/09/17 Discharge Comment: Follow up with GI specialist Doctor Vikki Iqbal in one week - Physicians Team Primary Care Provider: Hanh Jeong Attending Provider: Tyson Cooney Other Providers: Darrel Massey MD ; Raven Carbajal MD ; Ivette Steele ; Vikki Iqbal MD - Rxs /Orders / Referrals /Forms Prescriptions: Continue apixaban [Eliquis] 5 mg Tablet 5 mg PO BID aspirin [Aspir-81] 81 mg Tablet,Delayed Release (Dr/Ec) 81 mg PO DAILY donepezil 10 mg Tablet 10 mg PO DAILY finasteride 5 mg Tablet 5 mg PO DAILY folic acid 1 mg Tablet 1 mg PO DAILY isosorbide dinitrate 5 mg Tablet 5 mg PO BID levothyroxine 75 mcg Tablet 75 mcg PO DAILY lovastatin 40 mg Tablet 40 mg PO DAILY metoprolol tartrate 50 mg Tablet 25 mg PO DAILY Qty: 1 nitroglycerin [Nitrostat] 0.4 mg Tablet, Sublingual 0.4 mg SUBLINGUAL Q5-15M PRN (Reason: Chest Pain) Referrals: Vikki Iqbal MD [Physician] - See Instructions (See Dr Iqbal in 1 week.) UNKNOWN, [Non-Staff] - See Instructions - Discharge Instructions Patient Printed Instructions: ERCP (Endoscopic Retrograde Cholangiopancreatography) (DC), ERCP (Endoscopic Retrograde Cholangiopancreatography) (GEN), Magnetic Resonance Cholangiopancreatography (DC ), Abdominal Pain (ED), HELLP Syndrome (DC), Jaundice (DC) - Post Discharge Care Plan Care Plan Goals: Please call the physician's office Dr Rivera in one week to book the appointment to be seen within []. Your Health Problems: Goals to Promote Your Health: * To prevent worsening of your condition * To maintain your health at the optimal level Directions to Meet Your Goals: * Take your medications as prescribed * Follow your dietary instruction * Follow activity as directed * Keep your appointments as scheduled * Take your immunizations and boosters as scheduled * If your symptoms worsen call your PCP * If no PCP go to Urgent Care or Emergency Room Smoking is dangerous to your health. Avoid second hand smoke. You may reach the 24-hour crisis hotline for domestic abuse at .
== END 2017-12-09 18:36 | disposition home or self-care (01) ==
LOC: PHEDDLT 12-08 05:30 → PH3 12-08 05:40 → INTOOBSV 12-08 05:40 → N07 12-08 13:58
PROVIDERS: ADMIT Internal Medicine; ATTEND Internal Medicine